=== PATIENT | female | born 2000 | race Two or more races ===

== ENCOUNTER 2022-02-08 20:33 | Observation (INO) | payer OTHER ==
[~2022-02-08] VITALS: Ht 121.9 cm; Wt 86.2 kg
[2022-02-09 00:29] VITALS: BP 116/53
== END 2022-02-08 23:59 | disposition home or self-care (01) ==
LOC: MLD 20:33
PROVIDERS: ADMIT Obstetrics & Gynecology; ATTEND Obstetrics & Gynecology
DX: O62.9 Abnormality of forces of labor, unspecified (principal); Z3A.42 42 weeks gestation of pregnancy
CPT/HCPCS: 76805; 76819; G0378; Q0092; 81000